=== PATIENT | female | born 1955 | race Caucasian/White ===

== ENCOUNTER 2023-11-03 09:50 | Emergency (ER) | payer MEDICARE, SELFPAY ==
[2023-11-03 09:53] VITALS: BP 128/67
--- NOTE | 2023-11-03 09:57 | ED.GENMED ---
History of Present Illness
<Tamar Champion PA-C - Last Filed: 11/03/23 14:04>
General
Chief Complaint: Fall
Source: patient
Exam Limitations: none
Time Seen by Provider: 11/03/23 09:56
Nursing documentation reviewed up to this point in time: agreed with
Travel History
Have you had any contact with someone who has COVID-19?: No
Do you have any symptoms of coronavirus? Fever > 100 degrees, chills, cough, shortness of breath, sore throat, loss of taste or smell, muscle aches, or headache?: No
History of Present Illness
History of Present Illness:
This is a 67 y/o female with a PMH of alzheimer's disease presenting to the emergency department today with left shoulder pain and left groin pain following a fall that occurred yesterday. Patient is unable to recall the exact mechanism of injury.
Patient states that she did not hit her head. Family present in room reports that they were upstairs when they heard patient scream. Family reports that when he ran downstairs to go see her, she was laying on the floor in the kitchen. Family
reports that he was able to help her up and then later in the day, she started to complain of left shoulder pain and left groin pain. Patient is able to walk to ambulate but does have some pain with this. Patient has had no loss of consciousness,
no nausea or vomiting. Patient denies dizziness. Patient denies headache. Patient denies any neck pain. Patient denies abdominal pain, chest pain, shortness of breath. Patient denies back pain. Patient did not take anything today for pain.
Patient does not take any blood thinners.
Review of Systems
<Tamar Champion PA-C - Last Filed: 11/03/23 14:04>
Review of Systems
All Other Systems: ROS reviewed and negative except as documented in HPI and ROS
Phy Exam
<Tamar Champion PA-C - Last Filed: 11/03/23 14:04>
Physical Exam
Physical Exam:
Vitals: Patient's vital signs are stable
General: Patient is well appearing and in no acute distress
Skin: There is a large area of ecchymosis over the left anterior shoulder extending over the left clavicle.
Head: Normocephalic, atraumatic. No palpable hematomas.
Cardiac: Regular rate and rhythm, no murmurs. No tenderness palpation external chest wall. No palpable crepitus.
Peripheral vascular: Patient has 2+ radial and ulnar pulses bilaterally. Patient has 2+ dorsalis pedis pulses bilaterally.
Pulmonary: Normal respiratory effort, no wheezes.
Abdomen: No abdominal tenderness, no areas of ecchymosis. No signs of trauma.
Musculoskeletal: Patient has hip and groin pain with passive external and internal rotation and abduction of the left hip. Patient has pain with shoulder abduction but no pain with internal/external rotation. Patient has tenderness over the
anterior shoulder and tenderness over the left clavicle. No tenderness palpation of the cervical, thoracic, or lumbar spine. No tenderness palpation of right upper and right lower extremity.
Neuro: Patient oriented to person and place, has baseline cognitive deficits due to Alzheimer's. No focal neurologic deficiets. CN II-XII intact.
Course
<Tamar Champion PA-C - Last Filed: 11/03/23 14:04>
Orders/Labs/Results
Orders:
Orders
11/03/23 10:10
Ibuprofen [Motrin] 400 mg PO NOW STA
CR Clavicle - Left Complete Urgent
Comment:
Reason For Exam: left clavicular pain following fall
CR Shoulder - Left Min 2 View* Urgent
Comment:
Reason For Exam: left shoulder pain following fall
Hip, Left 2-3 Views [CR Hip - LT w/wo Pel 2-3 Vw*] Urgent
Comment:
Reason For Exam: left hip pain
Include a pelvis x-ray?: Yes
11/03/23 10:14
Ibuprofen [Motrin] 400 mg .ROUTE .STK-MED ONE
11/03/23 10:44
CT Head W/o Iv Contrast Urgent
Comment:
Reason For Exam: fall
11/03/23 12:51
Sling Left-Treatment ONCE
Vital Signs
Initial and Last Documented VS:
Initial Vital Signs
Temp Pulse Resp BP Pulse Ox
97.8 F 62 18 128/67 99
11/03/23 09:53 11/03/23 09:53 11/03/23 09:53 11/03/23 09:53 11/03/23 09:53
Last Documented Vital Signs
Temp Pulse Resp BP Pulse Ox
97.8 F 62 18 128/67 99
11/03/23 09:53 11/03/23 09:53 11/03/23 09:53 11/03/23 09:53 11/03/23 09:53
<Ryan Latham, DO - Last Filed: 11/03/23 11:52>
Orders/Labs/Results
Orders:
Orders
11/03/23 10:10
Ibuprofen [Motrin] 400 mg PO NOW STA
CR Clavicle - Left Complete Urgent
Comment:
Reason For Exam: left clavicular pain following fall
CR Shoulder - Left Min 2 View* Urgent
Comment:
Reason For Exam: left shoulder pain following fall
Hip, Left 2-3 Views [CR Hip - LT w/wo Pel 2-3 Vw*] Urgent
Comment:
Reason For Exam: left hip pain
Include a pelvis x-ray?: Yes
11/03/23 10:14
Ibuprofen [Motrin] 400 mg .ROUTE .STK-MED ONE
11/03/23 10:44
CT Head W/o Iv Contrast Urgent
Comment:
Reason For Exam: fall
11/03/23 12:51
Sling Left-Treatment ONCE
Vital Signs
Initial and Last Documented VS:
Initial Vital Signs
Temp Pulse Resp BP Pulse Ox
97.8 F 62 18 128/67 99
11/03/23 09:53 11/03/23 09:53 11/03/23 09:53 11/03/23 09:53 11/03/23 09:53
Last Documented Vital Signs
Temp Pulse Resp BP Pulse Ox
97.8 F 62 18 128/67 99
11/03/23 09:53 11/03/23 09:53 11/03/23 09:53 11/03/23 09:53 11/03/23 09:53
<Tamar Champion PA-C - Last Filed: 11/03/23 14:04>
MDM/Problems Addressed
Differential Diagnosis Includes:
Differentials include left clavicular fracture, left humeral head fracture, left pubic fracture, left hip fracture, musculoskeletal sprain/strain
MDM/Problems Addressed:
fall--left hip pain, left clavicular pain, left pelvic pain
Chronic conditions affecting care: Neurological disorder
Acute Exacerbation and/or Progression of Chronic Illness: Neurological disorder
<PAM Smith Last Filed: 11/03/23 14:04>
*Pulse Oximetry
Patient hypoxic: no
*Critical Care Note
Total Time (30-74mins, 75-104mins- exclusive of procedures): Not Applicable
Data Reviewed
Review of Other/Old Records Reveals: Records (No previous ear visits in [facility] to review) and Discharge Summary (No discharge summaries in [facility] to review )
Source: patient
<PAM Smith Last Filed: 11/03/23 14:04>
Patient Management
Escalation/DeEscalation of care consider admission/obs:
This is a 67 y/o female with a PMH of alzheimer's disease presenting to the emergency department today with left shoulder pain and left groin pain following a fall that occurred yesterday. On physical exam, patient has pain with palpation of left
clavicle and left shoulder, and groin pain with passive ROM of left hip. Patient was found to have a comminuted fracture of the distal left clavicle. Patient also found to have a left inferior and superior pubic rami fracture. Patient CT head
negative for any acute intracranial hemorrhage or hematoma. Patient can ambulate but with pain. Patient lives at home with partner who participates in her care. Educated patient on shoulder sling and importance of orthopedic follow up. Provided
number for Dr. Sauer.
ED Attending Note
<Tamar Champion PA-C - Last Filed: 11/03/23 14:04>
-
Portions of this chart may have been created with voice recognition software.� Occasional wrong word or��sound alike� substitutions may have occurred due to the inherent limitations of voice recognition software.
<Ryan Latham DO - Last Filed: 11/03/23 11:52>
ED Attending Note
Patient seen and examined by attending physician: Yes
I performed a history and physical exam of patient and discussed management with resident, I reviewed resident's note and agree with documented findings and plan of care.: Yes
ED Attending Note:
I have reviewed and agree with history and treatment plan by Tamar Champion. My exam revealed tenderness palpation at left lateral clavicle, mild pubic bone tenderness left side. Will ambulate patient, await CT head.
Discharge Plan
Departure
Patient Disposition: Home (Routine Discharge)
Date of Disposition: 11/03/23
Time of Disposition: 12:59
Patient with high blood pressure during this ER visit?: Yes
Condition: Good
Discharge Problem:
Clavicle fracture, Closed pelvic fracture
Instructions: Clavicle fracture, Pelvic fracture, Preventing falls in adults, How to Use a Shoulder Sling ED, BLOOD PRESSURE
Referrals:
Ric Sauer MD [Active] - Call in 1-3 days for appt
UNKNOWN - PT DOES,NOT KNOW [Unknown Provider] -
Activity Restrictions/Additional Instructions:
Please call Dr. Sauer's orthopedic office on Sunday to schedule an appointment.
Please follow up with your primary care provider.
Please wear shoulder sling when ambulating.
You can alternate ibuprofen and acetaminophen for pain. Continue to ice the area.
Please return to the emergency department for an acute worsening of your pain, fevers or chills, further injuries, or other concerning signs or symptoms.
Interventions
Interventions:
*Risk Screen - Suicide Last Done: 11/03/23 09:53
*General Assessment Last Done: 11/03/23 09:53
*Neglect/Abuse Screening Last Done: 11/03/23 09:53
ED- Fall Risk Assessment Last Done: 11/03/23 13:10
*ED COVID-19 Vaccine History Last Done: 11/03/23 09:53
*Nursing Disposition Last Done: 11/03/23 13:10
ED-Musculoskeletal Assessment Last Done: 11/03/23 10:19
ED- Neurological Assessment Last Done: 11/03/23 10:19
ED-Skin Assessment Last Done: 11/03/23 10:19
Discharge Date and Time
Discharge Date/Time: 11/03/23 13:10
Print Language: CITIZEN [place]
[2023-11-03 10:00] VITALS: BMI 20.1
[2023-11-03] MEDS: MOTRIN 400 MG PO (10:15)
== END 2023-11-03 13:10 | disposition home or self-care (01) ==
LOC: EMR 09:50
PROVIDERS: EMERGENCY PHYSICIAN Emergency Medicine; FAMILY PHYSICIAN Physician Assistant Medical; REFERRING PHYSICIAN Psychiatry & Neurology Neurology
DX: S42.032A Displaced fracture of lateral end of left clavicle, initial encounter for closed fracture (principal); S32.592A Other specified fracture of left pubis, initial encounter for closed fracture; W19.XXXA Unspecified fall, initial encounter; R03.0 Elevated blood-pressure reading, without diagnosis of hypertension; F02.80 Dementia in other diseases classified elsewhere, unspecified severity, without behavioral disturbance, psychotic disturbance, mood disturbance, and anxiety; G30.9 Alzheimer's disease, unspecified
CPT/HCPCS: 99284; 70450; 73000; 73030; 73502

== ENCOUNTER → 2024-03-11 14:02 | Outpatient (REF) | payer MEDICARE, SELFPAY | LOC: RAD 14:02 | PROVIDERS: ATTENDING PHYSICIAN Psychiatry & Neurology Neurology; FAMILY PHYSICIAN Physician Assistant Medical | DX: I63.89 Other cerebral infarction (principal) | CPT/HCPCS: 93306; 93880 ==

== ENCOUNTER → 2024-04-10 15:45 | Outpatient (REF) | payer MEDICARE, SELFPAY | LOC: RAD 15:45 | PROVIDERS: ATTENDING PHYSICIAN Urology; FAMILY PHYSICIAN Physician Assistant Medical | DX: N32.81 Overactive bladder (principal); M62.89 Other specified disorders of muscle | CPT/HCPCS: 76770; 76856 ==

== ENCOUNTER → 2024-04-21 14:44 | Outpatient (REF) | payer MEDICARE, SELFPAY | LOC: HWWDC 14:44 | PROVIDERS: ATTENDING PHYSICIAN Physician Assistant Medical | DX: Z12.31 Encounter for screening mammogram for malignant neoplasm of breast (principal) | CPT/HCPCS: 77063; 77067 ==

== ENCOUNTER → 2024-05-20 09:42 | Outpatient (REF) | payer MEDICARE, SELFPAY | LOC: HWRAD 09:42 | PROVIDERS: ATTENDING PHYSICIAN Physician Assistant Medical | DX: K76.89 Other specified diseases of liver (principal) | CPT/HCPCS: 76700 ==

== ENCOUNTER → 2025-02-05 11:36 | Outpatient (REF) | payer MEDICARE, SELFPAY | LOC: PAVMRI 11:36 | PROVIDERS: ATTENDING PHYSICIAN Internal Medicine Gastroenterology; FAMILY PHYSICIAN Physician Assistant Medical | DX: K76.89 Other specified diseases of liver (principal) | CPT/HCPCS: 74183; A9575 ==